=== PATIENT | male | born 1950 | race Caucasian/White ===

== ENCOUNTER 2024-04-06 13:44 | Emergency (ER) | payer MEDICARE ==
[2024-04-06 13:48] VITALS: PULSE 122
[2024-04-06] MEDS ORDERED: Sodium Chloride 0.9% 10 ML Syringe FLUSH PRN (14:02)
[2024-04-06 14:08] LABS: BASOPHILS ABSOLUTE AUTO 0.03 K/uL (0.00-0.20); BASOPHILS PERCENT AUTO 0.2 % (0.0-2.0); EOSINOPHILS ABSOLUTE AUTO 0.33 K/uL (0.00-0.50); EOSINOPHILS PERCENT AUTO 2.5 % (0.0-5.0); HEMATOCRIT 34.3 % (39.0-49.0); HEMOGLOBIN 10.9 g/dL (13.1-16.8); IMMATURE GRAN ABSOLUTE AUTO 0.02 10^3/uL (0.00-0.04); IMMATURE GRAN PERCENT AUTO 0.2 % (0.0-0.4); LYMPHOCYTES ABSOLUTE AUTO 2.01 K/uL (0.50-3.50); LYMPHOCYTES PERCENT AUTO 15.4 % (10.0-50.0); MEAN CORPUSCULAR HEMOGLOBIN 30.5 pg (28.2-33.3); MEAN CORPUSCULAR HGB CONC 31.8 g/dL (31.7-36.0); MEAN CORPUSCULAR VOLUME 96.1 fL (84.0-98.0); MONOCYTES ABSOLUTE AUTO 1.17 K/uL (0.00-1.00); MONOCYTES PERCENT AUTO 8.9 % (2.0-14.0); NEUTROPHILS ABSOLUTE AUTO 9.52 K/uL (1.40-7.00); NEUTROPHILS PERCENT AUTO 72.8 % (45.0-80.0); PLATELET COUNT,PLT 303 K/uL (150-350); RED BLOOD CELL COUNT 3.57 M/uL (4.33-5.41); RED CELL DISTRIBUTION WIDTH 13.8 % (11.2-14.1); WHITE BLOOD CELL COUNT,WBC 13.1 K/uL (4.0-10.2)
[2024-04-06] MEDS: Lactated Ringers 1,000 ML IV SCH ×2 (14:12→15:45)
[2024-04-06 14:37] LABS: BILIRUBIN TOTAL 0.2 mg/dL (0.2-1.0); CALCIUM 8.4 mg/dL (8.5-10.1); CARBON DIOXIDE,CO2 22.3 mmol/L (21.0-32.0); CREATININE 2.93 mg/dL (0.51-1.17)
[2024-04-06 14:38] LABS: ANION GAP 14.7 meq/L (7-15)
[2024-04-06] MEDS: Labetalol 20 MG/4 ML Syringe IVPUSH ONE (14:52)
[2024-04-06 15:02] VITALS: BP 97/72
== END 2024-04-06 18:10 ==
LOC: LL.ED 13:44
DX: E86.0 Dehydration (principal); Z88.8 Allergy status to other drugs, medicaments and biological substances; Z79.899 Other long term (current) drug therapy
CPT/HCPCS: 36415; 80053; 83605; 83880; 84484; 85025; 93005; 96361; 96374; 99285-25; J1920; J7120

== ENCOUNTER 2025-01-14 10:23 | Emergency (ER) | payer MEDICARE, OTHER ==
[2025-01-14 10:48] LABS: BASOPHILS ABSOLUTE AUTO 0.02 K/uL (0.00-0.20); BASOPHILS PERCENT AUTO 0.2 % (0.0-2.0); EOSINOPHILS ABSOLUTE AUTO 0.26 K/uL (0.00-0.50); EOSINOPHILS PERCENT AUTO 3.0 % (0.0-5.0); IMMATURE GRAN ABSOLUTE AUTO 0.01 10^3/uL (0.00-0.04); IMMATURE GRAN PERCENT AUTO 0.1 % (0.0-0.4); LYMPHOCYTES ABSOLUTE AUTO 2.42 K/uL (0.50-3.50); LYMPHOCYTES PERCENT AUTO 28.1 % (10.0-50.0); MONOCYTES ABSOLUTE AUTO 0.71 K/uL (0.00-1.00); MONOCYTES PERCENT AUTO 8.2 % (2.0-14.0); NEUTROPHILS ABSOLUTE AUTO 5.19 K/uL (1.40-7.00); NEUTROPHILS PERCENT AUTO 60.4 % (45.0-80.0); PLATELET COUNT,PLT 286 K/uL (150-350); RED BLOOD CELL COUNT 3.22 M/uL (4.33-5.41); RED CELL DISTRIBUTION WIDTH 14.5 % (11.2-14.1); WHITE BLOOD CELL COUNT,WBC 8.6 K/uL (4.0-10.2)
[2025-01-14 11:13] LABS: LACTIC ACID 1.2 mmol/L (0.4-2.0)
[2025-01-14 11:16] LABS: ALANINE AMINOTRANSFERASE,ALT 25.0 U/L (12-78); ASPARTATE AMNIOTRANSFERASE,AST 16.0 U/L (15-37); BILIRUBIN TOTAL 0.4 mg/dL (0.2-1.0); BLOOD UREA NITROGEN,BUN 24.0 mg/dL (7-18); CARBON DIOXIDE,CO2 26.1 mmol/L (21.0-32.0); CHLORIDE,CL 106.0 mmol/L (98-107); CREATININE 2.25 mg/dL (0.51-1.17); EST CRCL DRUG DOSING (CG) 27.44 mL/min; GLUCOSE RANDOM 178.0 mg/dL (70-99); POTASSIUM,K 4.2 mmol/L (3.5-5.1); PROTEIN TOTAL,TP 6.8 g/dL (6.4-8.2); SODIUM,NA 140.0 mmol/L (136-145)
[2025-01-14 11:21] LABS: ESTIMATED GFR 30.0 mL/min (>=60)
[2025-01-14 11:37] LABS: APPEARANCE,URINE CLEAR; GLUCOSE,URINE >=1000 mg/dL (NEGATIVE); OCCULT BLOOD,URINE NEGATIVE (NEGATIVE)
[2025-01-14 11:47] LABS: SQUAMOUS EPITHELIAL CELLS,UR NOT SEEN /HPF (NOT SEEN)
== END 2025-01-14 12:50 | disposition home or self-care (01) ==
LOC: LL.ED 10:23
DX: R19.7 Diarrhea, unspecified (principal); E11.9 Type 2 diabetes mellitus without complications; Z91.048 Other nonmedicinal substance allergy status; Z79.4 Long term (current) use of insulin; Z79.899 Other long term (current) drug therapy
CPT/HCPCS: 36415; 74022; 80053; 81001; 83605; 85025; 86140; 87428-QW; 99284